=== PATIENT | female | born 2005 | race Caucasian/White ===

== ENCOUNTER 2025-06-24 10:04 | Emergency (ER) | payer BC, SELFPAY ==
[2025-06-24 10:07] VITALS: BP 116/78
--- NOTE | 2025-06-24 10:58 | ED.GENMED ---
History of Present Illness
General
Chief Complaint: Throat Problem
Source: patient
Exam Limitations: none
Time Seen by Provider: 06/24/25 10:48
History of Present Illness
History of Present Illness:
19yoF with no significant past medical history presenting with her father for evaluation of URI symptoms. She initially started with a sore throat about 5 days ago. She developed body aches, fevers, and worsening cough 3 days ago. Tmax 100.6.
She also is experiencing central chest pain with coughing. She vomited once yesterday. Home COVID test was negative. She has been using Tylenol and Robitussin OTC. She has an ongoing cough x 3 months. She goes to school in [place] and was
seen at an ED there. She was told her symptoms were related to postnasal drip and she was given a nasal steroid. No known sick contacts.
Phy Exam
General Physical Exam
General Presentation: well appearing and no apparent distress
General Skin: warm and dry
General Habitus: normal
General Mental: alert
ENT Exam
ENT Exam: TM's normal, neck supple, normocephalic and other (Mild erythema in posterior oropharynx. Hoarse voice noted consistent with laryngitis. No trismus. Uvula midline. )
Cardiovascular Exam
Cardiovascular Exam: regular rate/rhythm
Pulmonary Exam
Pulmonary Exam: lungs clear, no respiratory distress, no rales, no crackles and no rhonchi
Gastrointestinal Exam
Gastrointestinal Exam: non tender, soft and non distended
Neurological Exam
Neurological Exam: alert
Gruver Coma Scale
Eye Opening: Spontaneous
Verbal Response: Oriented
Motor Response: Obeys Commands
GCS Total Score: 15
Skin Exam
Skin Exam: normal color and warm/dry
Psychiatric Exam
Psychiatric Exam: normal mood/affect
Sepsis
Sepsis Screening
Sepsis Assessment: Sepsis Ruled Out
Sepsis Screen
Sepsis Screen: Sepsis Ruled Out
Date: 06/24/25
Time: 14:35
Course
Orders/Labs/Results
Orders:
Orders
06/24/25 10:57
CR Chest - 2 Views Urgent
Comment:
Reason For Exam: cough
06/24/25 11:02
COVID-19 Antigen Urgent
Source: Nasal Swab
Influenza A+B Rapid Molecular Urgent
AMAIRANI Source: Nasal Swab
Specimen Description:
Rapid Strep Group A Urgent
AMAIRANI Source: Throat/Pharynx
Specimen Description:
Date Specimen was Collected: 06/24/25
Time Specimen was Collected: 11:00
06/24/25 11:58
Monotest Urgent
06/24/25 13:10
Dexamethasone [Decadron] 10 mg PO NOW STA
Vital Signs
Initial and Last Documented VS:
Initial Vital Signs
Temp Pulse Resp BP Pulse Ox
98.0 F 109 22 116/78 96
06/24/25 10:07 06/24/25 10:07 06/24/25 10:07 06/24/25 10:07 06/24/25 10:07
Last Documented Vital Signs
Temp Pulse Resp BP Pulse Ox
98.0 F 69 22 99/60 99
06/24/25 10:07 06/24/25 13:14 06/24/25 13:14 06/24/25 13:14 06/24/25 13:14
MDM/Problems Addressed
Differential Diagnosis Includes:
19yoF here with URI symptoms x 3 days including cough, sore throat, fever, myalgias. HR 109 in triage. Temp 98.0. Patient well-appearing in no distress. Mild posterior oropharyngeal erythema noted. Exam otherwise reassuring. Differential diagnosis
includes but is not limited to: Influenza, strep pharyngitis, laryngitis, other viral illness
COVID/flu and strep testing obtained which are negative. Chest x-ray clear. Father requesting mono testing as patient's uncle is an ENT and said this would be helpful. Low clinical suspicion of mono given associated cough but Monospot added for
completeness which is negative. Suspect viral URI. Dose of Decadron provided and supportive care discussed. Advised follow-up with PCP and ED return precautions reviewed. Patient in agreement with plan and was discharged in stable condition.
*Pulse Oximetry
SaO2: 96
Oxygen Mode of Delivery: Room air
Patient hypoxic: no
*Critical Care Note
Total Time (30-74mins, 75-104mins- exclusive of procedures): Not Applicable
ED Attending Note
-
Portions of this chart may have been created with voice recognition software.� Occasional wrong word or��sound alike� substitutions may have occurred due to the inherent limitations of voice recognition software.
Discharge Plan
Departure
Patient Disposition: Home (Routine Discharge)
Date of Disposition: 06/24/25
Time of Disposition: 13:10
Patient with high blood pressure during this ER visit?: No
Discharge Problem:
Viral URI with cough
Instructions: Upper respiratory infection in adults - ED (DC)
Referrals:
[facility] [Provider Group]
Antonio Harvey MD [Family Provider, Pediatrics]
Activity Restrictions/Additional Instructions:
Drink plenty of fluids and rest. Use honey, Vicks vapor rub, and humidifier for your cough. Use Sudafed or Mucinex for your congestion.
Please follow-up with your family doctor. Return to the ER with any worsening symptoms including trouble breathing.
Interventions
Interventions:
*Risk Screen - Suicide Last Done: 06/24/25 10:07
*General Assessment Last Done: 06/24/25 10:07
*Neglect/Abuse Screening Last Done: 06/24/25 10:07
*ED COVID-19 Vaccine History Last Done: 06/24/25 11:05
*ED Influenza Vaccine History Last Done: 06/24/25 11:05
[facility] Fall Risk Assessment Tool Last Done: 06/24/25 11:05
*Nursing Disposition Last Done: 06/24/25 13:27
ED-EENT Assessment Last Done: 06/24/25 11:05
ED- Pulmonary Assessment Last Done: 06/24/25 11:05
Discharge Date and Time
Discharge Date/Time: 06/24/25 13:28
Print Language: CHILEAN
[2025-06-24 11:31] LABS: COVID-19 Antigen Negative (Negative)
[2025-06-24 13:14] VITALS: BP 99/60
[2025-06-24] MEDS: DECADRON 10 MG PO (13:15)
== END 2025-06-24 13:28 | disposition home or self-care (01) ==
LOC: EMR 10:04
PROVIDERS: Physician Assistant; EMERGENCY PHYSICIAN Emergency Medicine; FAMILY PHYSICIAN Pediatrics
DX: J06.9 Acute upper respiratory infection, unspecified (principal)
CPT/HCPCS: 99284; 71046; 86308; 87070; 87502; 87811; 87880